=== PATIENT | male | born 1985 | race Caucasian/White ===

== ENCOUNTER 2022-06-23 12:17 | Emergency (ER) | payer BC ==
[~2022-06-23] VITALS: Ht 193 cm; Wt 170.1 kg
[2022-06-23 12:53] LABS: BASOPHILS % (AUTO) 0.4 % (0.0-2.0); EOSINOPHILS % (AUTO) 1.3 % (0.0-6.0); HEMATOCRIT 47 % (39-51); HEMOGLOBIN 15.7 g/dL (13.5-17.5); LYMPHOCYTES # (AUTO) 1.6 K/uL (0.8-4.8); LYMPHOCYTES % (AUTO) 17.4 % (20.0-44.0); MEAN CORPUSCULAR HGB CONC 34 g/dl (31.0-36.0); MEAN CORPUSCULAR VOLUME 94 fL (80-96); MONOCYTES # (AUTO) 0.5 K/uL (0.1-1.30); MONOCYTES % (AUTO) 5.2 % (2.0-12.0); NEUTROPHILS # (AUTO) 6.7 K/uL (1.8-8.9); NEUTROPHILS % (AUTO) 75.7 % (43.0-81.0); PLATELET COUNT (AUTO) 229 K/uL (150-450); RED BLOOD CELL COUNT(AUTO) 4.98 MIL/uL (4.5-6.0); WHITE BLOOD COUNT (AUTO) 8.9 K/uL (4.3-11.0)
[2022-06-23] MEDS ORDERED: OXCARBAZEPINE 150 MG TABLET PO ONE (13:00)
[2022-06-23] MEDS ORDERED: TOPIRAMATE 100 MG TABLET PO ONE (13:00)
[2022-06-23] MEDS ORDERED: IV NS 0.9% 1,000 ML BAG IV ONE (13:00)
[2022-06-23 13:09] LABS: CALCIUM, SERUM 8.4 mg/dL (8.5-10.1); CARBON DIOXIDE 22 mmol/L (21-32); CHLORIDE 107 mmol/L (98-107); CREATININE 0.9 mg/dL (0.6-1.3); GLUCOSE 164 mg/dL (74-106); POTASSIUM 4.3 mmol/L (3.5-5.1); SODIUM SERUM 139 mmol/L (136-145); UREA NITROGEN, BLOOD 9 mg/dL (7-18)
[2022-06-23 13:16] LABS: ALANINE AMINOTRANSFERASE 54 U/L (12-78); ALBUMIN 3.9 g/dL (3.4-5.0); ALCOHOL, BLOOD < 3 mg/dL (0-0); ALKALINE PHOSPHATASE 53 U/L (46-116); ASPARTATE AMINOTRANSFERASE 24 U/L (15-37); BILIRUBIN,DIRECT 0.1 mg/dL (0.0-0.2); BILIRUBIN,TOTAL 0.3 mg/dL (0.2-1.0); TOTAL PROTEIN, SERUM 7.1 g/dL (6.4-8.2)
[2022-06-23] MEDS ORDERED: LORAZEPAM INJ 2 MG/ML VIAL ONE (13:17)
[2022-06-23 13:20] LABS: ACETAMINOPHEN < 10 ug/ml (10-30)
[2022-06-23] MEDS ORDERED: LORAZEPAM INJ 2 MG/ML VIAL IV ONE ×2 (13:30)
[2022-06-23] MEDS ORDERED: LEVETIRACETAM (500MG) 1,000 MG in IV NS 0.9% 100 ML IV SCH (13:30)
--- NOTE | 2022-06-23 13:34 | NUR ---
second ativan order not given. double ordered.
--- NOTE | 2022-06-23 13:40 | NUR ---
Addendum: IV End Times: 1. Keppra 500 mg in 100 ML start time: 1340 pm end time : 1440 pm LFA PIV # [id number], port #1
--- NOTE | 2022-06-23 13:55 | NUR ---
KEPPRA IV 2ND ORDER NOT GIVEN; DUPLICATE/DOUBLE ORDER
[2022-06-23] MEDS ORDERED: KEPPRA 500 MG in IV NS 100 ML IV ONE (14:00)
[2022-06-23 14:35] VITALS: BP 125/80
--- NOTE | 2022-06-23 14:50 | NUR ---
PATIENT WAS DISCHARGED, STABLE; STEADY GAIT ACCOMPANIED BY UPON DISCHARGE. NO DIZZINESS NOTED; ALL NEEDS ATTENDED.NO SSx OF DISTRESS NOTED AT THIS TIME. DISCHARGED PER ORDER /PROTOCOL.
== END 2022-06-23 14:53 | disposition home or self-care (01) ==
LOC: ER 12:30
DX: G40.909 Epilepsy, unspecified, not intractable, without status epilepticus (principal); I10 Essential (primary) hypertension; F41.9 Anxiety disorder, unspecified
CPT/HCPCS: 99284; 96365; 96375; 85025; 80048; 80076; 36415; 82962; 80143; 80320; J2060; J7030 ×3; J7050; J1953; G0480